=== PATIENT | female | born 1960 | race Caucasian/White ===

== ENCOUNTER 2021-01-21 22:43 | Inpatient (IN) | payer OTHER ==
[~2021-01-21] VITALS: Ht 162.6 cm; Wt 166.0 kg
[~2021-01-21 22:43] MED LIST: ACCUPRIL20 MG PO; ACTOS15 MG PO; ALBUTEROL2.5 MG/3 M INH; ASPIRIN 325MG325 MG PO; BASAGLAR K100 UNIT/1 SQ; DILTIAZEM 24HR240 MG PO; FLONASE ALLER15.8 ML; GLUCOPHAGE1000 MG PO; ISOSORBIDE MONO30 MG PO; K-DUR TAB 20 M20 MEQ PO; LASIX 40 MG TAB40 MG PO; METOPROLOL SUCC50 MG PO; NITROGLYCERIN6.5 M1 PO; PLAVIX75 MG PO; SINGULAIR10 MG PO; STOOL SOFTENER100 MG PO; VENTOLIN HFA 66.7 GM INH; ZANTAC300 MG PO; ZITHROMAX250 MG PO; ZOCOR20 MG PO
[2021-01-22 01:41] LABS: HEMOGLOBIN 10.4 gm/dl (12.3-15.3); RED BLOOD COUNT 4.14 M/UL (4.00-5.10)
[2021-01-22 02:03] LABS: BUN/CREATININE RATIO 13 (0-10)
[2021-01-22] MEDS ORDERED: DAILY VALUE1 EACH PO (11:43)
[2021-01-22] MEDS ORDERED: FLOVENT 220 MC7.9 GM INH (11:43)
[2021-01-22] MEDS ORDERED: JANUVIA100 MG PO (11:44)
[2021-01-22] MEDS ORDERED: PREDNISONE 10 M10 MG PO (11:44)
[2021-01-22] MEDS ORDERED: NITROGLYCERIN0.4 MG SL (11:45)
[2021-01-22] MEDS ORDERED: TRIAMCINOLONE A60 ML TOP (11:47)
[2021-01-22] MEDS ORDERED: AZITHROMYCIN250 MG PO (11:48)
[2021-01-23 06:24] LABS: HEMOGLOBIN 9.4 gm/dl (12.3-15.3); RED BLOOD COUNT 3.77 M/UL (4.00-5.10); WHITE BLOOD COUNT 13.4 K/UL (4.5-11.0)
[2021-01-24 06:34] LABS: HEMOGLOBIN 8.6 gm/dl (12.3-15.3); RED BLOOD COUNT 3.56 M/UL (4.00-5.10); WHITE BLOOD COUNT 13.6 K/UL (4.5-11.0)
[2021-01-25 05:34] LABS: HEMOGLOBIN 8.9 gm/dl (12.3-15.3); RED BLOOD COUNT 3.58 M/UL (4.00-5.10); WHITE BLOOD COUNT 10.9 K/UL (4.5-11.0)
[2021-01-26] MEDS ORDERED: FLAGYL500 MG PO (09:09)
[2021-01-26] MEDS ORDERED: LEVOFLOXACIN500 MG PO (09:09)
[2021-01-26] MEDS ORDERED: MEDROL4 MG PO (09:09)
== END 2021-01-26 11:08 | disposition home or self-care (01) | DRG 871 ==
LOC: ER1 22:43 → MED SURG 4 01-22 04:15 → CDU 01-22 04:15 → MED SURG 4 01-22 15:45
PROVIDERS: Internal Medicine; Physician Assistant; Physician Assistant Medical; ADMIT Internal Medicine
DX: A41.9 Sepsis, unspecified organism (principal); J18.9 Pneumonia, unspecified organism; J96.21 Acute and chronic respiratory failure with hypoxia; J96.22 Acute and chronic respiratory failure with hypercapnia; J44.1 Chronic obstructive pulmonary disease with (acute) exacerbation; J44.0 Chronic obstructive pulmonary disease with (acute) lower respiratory infection; Z68.44 Body mass index [BMI] 60.0-69.9, adult; K81.0 Acute cholecystitis; E66.2 Morbid (severe) obesity with alveolar hypoventilation; R65.20 Severe sepsis without septic shock; Z20.822 Contact with and (suspected) exposure to COVID-19; E78.5 Hyperlipidemia, unspecified; F17.210 Nicotine dependence, cigarettes, uncomplicated; I25.10 Atherosclerotic heart disease of native coronary artery without angina pectoris; E11.65 Type 2 diabetes mellitus with hyperglycemia; Z79.4 Long term (current) use of insulin; Z99.81 Dependence on supplemental oxygen; Z95.5 Presence of coronary angioplasty implant and graft; Z90.49 Acquired absence of other specified parts of digestive tract; Z88.5 Allergy status to narcotic agent; Z88.0 Allergy status to penicillin; Z88.2 Allergy status to sulfonamides; Z82.49 Family history of ischemic heart disease and other diseases of the circulatory system; Z71.6 Tobacco abuse counseling
CPT/HCPCS: 0240U; 36415; 36600; 71045; 76705; 80048; 80053; 81001; 82550; 82553; 82803; 82962; 83036; 83605; 83690; 83735; 83874; 84484; 85025; 85027; 87040; 93005; 94640; 94664; 94760; 96374; 97162; 99285; J0456; J0696; J1650; J2920; J2930; J7030; Q9967

== ENCOUNTER 2021-06-18 16:51 | Inpatient (IN) | payer OTHER ==
[~2021-06-18] VITALS: Ht 160 cm; Wt 172.4 kg
[~2021-06-18 16:51] MED LIST changes: +AZITHROMYCIN250 MG PO; +DAILY VALUE1 EACH PO; +FLAGYL500 MG PO; +FLOVENT 220 MC7.9 GM INH; +JANUVIA100 MG PO; +LEVOFLOXACIN500 MG PO; +MEDROL4 MG PO; +NITROGLYCERIN0.4 MG SL; +PREDNISONE 10 M10 MG PO; +TRIAMCINOLONE A60 ML TOP
[2021-06-18 17:34] LABS: HEMOGLOBIN 8.3 gm/dl (12.3-15.3); RED BLOOD COUNT 3.61 M/UL (4.00-5.10); WHITE BLOOD COUNT 13.6 K/UL (4.5-11.0)
[2021-06-18 18:06] LABS: BUN/CREATININE RATIO 25 (0-10)
[2021-06-18] MEDS ORDERED: LANTUS100 UNIT/1 SQ (20:44)
[2021-06-18] MEDS ORDERED: PROAIR HFA8.5 GM INH (20:45)
[2021-06-19 04:14] LABS: HEMOGLOBIN 7.6 gm/dl (12.3-15.3); RED BLOOD COUNT 3.36 M/UL (4.00-5.10); WHITE BLOOD COUNT 13.8 K/UL (4.5-11.0)
[2021-06-20 07:29] LABS: HEMOGLOBIN 8.2 gm/dl (12.3-15.3); RED BLOOD COUNT 3.61 M/UL (4.00-5.10); WHITE BLOOD COUNT 13.8 K/UL (4.5-11.0)
[2021-06-21 06:45] LABS: HEMOGLOBIN 8.2 gm/dl (12.3-15.3); RED BLOOD COUNT 3.57 M/UL (4.00-5.10); WHITE BLOOD COUNT 13.1 K/UL (4.5-11.0)
[2021-06-21] MEDS ORDERED: PROTONIX 40 MG40 M1 PO (16:35)
[2021-06-21] MEDS ORDERED: LEVOFLOXACIN750 MG PO (16:35)
[2021-06-21] MEDS ORDERED: MEDROL DOSEPAK 24 MG PO (16:35)
[2021-06-21] MEDS ORDERED: IPRAT-ALBUT 0.5-3 ML INH (16:35)
[2021-06-21] MEDS ORDERED: PULMICORT0.5 MG/2 M INH (16:47)
[2021-06-21] MEDS ORDERED: ASPIRIN EC81 MG PO (16:47)
[2021-06-21] MEDS ORDERED: FERROUS GLUCON324 M1 PO (16:47)
[2021-06-28] MEDS ORDERED: HYDROCODON-ACE1 EAC4 PO (09:08)
== END 2021-06-21 18:45 | disposition home or self-care (01) | DRG 871 ==
LOC: ER1 16:51 → CDU 21:07 → MED SURG 4 06-19 16:34
PROVIDERS: Internal Medicine; Physician Assistant; Surgery; ADMIT Internal Medicine
PROC: 3E0333Z Introduction of Anti-inflammatory into Peripheral Vein, Percutaneous Approach (ICD-10-PCS; principal; 2021-06-18)
PROC: 5A09357 Assistance with Respiratory Ventilation, Less than 24 Consecutive Hours, Continuous Positive Airway Pressure (ICD-10-PCS; 2021-06-18)
PROC: B24BZZ4 Ultrasonography of Heart with Aorta, Transesophageal (ICD-10-PCS; 2021-06-21)
DX: A41.9 Sepsis, unspecified organism (principal); J96.21 Acute and chronic respiratory failure with hypoxia; Z20.822 Contact with and (suspected) exposure to COVID-19; J96.22 Acute and chronic respiratory failure with hypercapnia; J44.1 Chronic obstructive pulmonary disease with (acute) exacerbation; J44.0 Chronic obstructive pulmonary disease with (acute) lower respiratory infection; E66.2 Morbid (severe) obesity with alveolar hypoventilation; Z68.44 Body mass index [BMI] 60.0-69.9, adult; R65.20 Severe sepsis without septic shock; E78.5 Hyperlipidemia, unspecified; D64.9 Anemia, unspecified; E11.65 Type 2 diabetes mellitus with hyperglycemia; G47.33 Obstructive sleep apnea (adult) (pediatric); I10 Essential (primary) hypertension; I25.10 Atherosclerotic heart disease of native coronary artery without angina pectoris; F17.210 Nicotine dependence, cigarettes, uncomplicated; E11.9 Type 2 diabetes mellitus without complications; Z79.4 Long term (current) use of insulin; Z95.5 Presence of coronary angioplasty implant and graft; Z90.49 Acquired absence of other specified parts of digestive tract; Z88.5 Allergy status to narcotic agent; Z88.0 Allergy status to penicillin; Z88.2 Allergy status to sulfonamides; Z82.49 Family history of ischemic heart disease and other diseases of the circulatory system; Z83.49 Family history of other endocrine, nutritional and metabolic diseases; Z79.2 Long term (current) use of antibiotics; Z79.01 Long term (current) use of anticoagulants; Z79.82 Long term (current) use of aspirin
CPT/HCPCS: ECHO; 36415; 36600; 71045; 71046; 76705; 80048; 80053; 82550; 82553; 82803; 82962; 83540; 83550; 83874; 83880; 84484; 85025; 85027; 90686; 93005; 93306; 94640; 94660; 94664; 94760; 96374; 96375; 96376; 99285; G0008; G0378; J0456; J1100; J1940; J1956; J2920; J2930; J7030; U0002

== ENCOUNTER 2021-06-27 15:17 | Emergency (ER) | payer OTHER ==
[~2021-06-27 15:17] MED LIST changes: +ASPIRIN EC81 MG PO; +FERROUS GLUCON324 M1 PO; +IPRAT-ALBUT 0.5-3 ML INH; +LANTUS100 UNIT/1 SQ; +LEVOFLOXACIN750 MG PO; +MEDROL DOSEPAK 24 MG PO; +PROAIR HFA8.5 GM INH; +PROTONIX 40 MG40 M1 PO; +PULMICORT0.5 MG/2 M INH
[2021-06-28] MEDS ORDERED: HYDROCODON-ACE1 EAC4 PO (09:08)
== END 2021-06-27 16:41 | disposition home or self-care (01) ==
LOC: ER1 15:17
DX: S82.831A Other fracture of upper and lower end of right fibula, initial encounter for closed fracture (principal); I25.10 Atherosclerotic heart disease of native coronary artery without angina pectoris; E11.9 Type 2 diabetes mellitus without complications; J44.9 Chronic obstructive pulmonary disease, unspecified; X50.1XXA Overexertion from prolonged static or awkward postures, initial encounter; F17.210 Nicotine dependence, cigarettes, uncomplicated
CPT/HCPCS: 73610; 99283

== ENCOUNTER 2021-10-24 11:03 | Inpatient (IN) | payer OTHER ==
[~2021-10-24] VITALS: Ht 162.6 cm; Wt 158.8 kg
[~2021-10-24 11:03] MED LIST changes: -ACTOS15 MG PO; -FLONASE ALLER15.8 ML; +HYDROCODON-ACE1 EAC4 PO; -JANUVIA100 MG PO; -LANTUS100 UNIT/1 SQ; -NITROGLYCERIN0.4 MG SL; -SINGULAIR10 MG PO; -STOOL SOFTENER100 MG PO; -ZOCOR20 MG PO
[2021-10-24 11:41] LABS: RED BLOOD COUNT 2.25 M/UL (4.00-5.10); WHITE BLOOD COUNT 17.2 K/UL (4.5-11.0)
[2021-10-24] MEDS ORDERED: JANUVIA100 MG PO (11:44)
[2021-10-24] MEDS ORDERED: NITROGLYCERIN0.4 MG SL (11:45)
[2021-10-24 12:11] LABS: BUN/CREATININE RATIO 26 (0-10)
[2021-10-24] MEDS ORDERED: ASPIRIN325 MG PO (14:44)
[2021-10-24] MEDS ORDERED: METOPROLOL SUCC50 MG PO (14:50)
[2021-10-24] MEDS ORDERED: CIPROFLOXACIN500 M1 PO (14:55)
[2021-10-24] MEDS ORDERED: PREDNISONE10 MG PO (14:55)
[2021-10-24] MEDS ORDERED: ALBUTEROL2.5 MG/3 M NEB (14:56)
--- NOTE | 2021-10-24 16:47 | NUR ---
THE SECOND UNIT OF BLOOD WAS STARTED ON PATIENT AT 1641
[2021-10-24] MEDS ORDERED: LANTUS100 UNIT/1 SQ (20:44)
[2021-10-24] MEDS ORDERED: ACTOS15 MG PO (22:07)
[2021-10-24] MEDS ORDERED: ZOCOR20 MG PO (22:09)
[2021-10-24] MEDS ORDERED: SINGULAIR10 MG PO (22:11)
[2021-10-24] MEDS ORDERED: STOOL SOFTENER100 MG PO (22:14)
[2021-10-24] MEDS ORDERED: FLONASE ALLER15.8 ML (22:18)
[2021-10-24 23:08] LABS: HEMOGLOBIN 6.4 gm/dl (12.3-15.3)
[2021-10-25 06:50] LABS: HEMOGLOBIN 7.1 gm/dl (12.3-15.3)
[2021-10-25 06:53] LABS: RED BLOOD COUNT 2.91 M/UL (4.00-5.10); WHITE BLOOD COUNT 11.6 K/UL (4.5-11.0)
[2021-10-25 14:27] LABS: HEMOGLOBIN 7.6 gm/dl (12.3-15.3)
[2021-10-26 03:00] LABS: HEMOGLOBIN 7.6 gm/dl (12.3-15.3); RED BLOOD COUNT 2.97 M/UL (4.00-5.10)
[2021-10-27 03:49] LABS: HEMOGLOBIN 7.2 gm/dl (12.3-15.3); RED BLOOD COUNT 2.82 M/UL (4.00-5.10)
[2021-10-28 03:35] LABS: RED BLOOD COUNT 2.82 M/UL (4.00-5.10); WHITE BLOOD COUNT 8.6 K/UL (4.5-11.0)
[2021-10-29 03:21] LABS: HEMOGLOBIN 7.7 gm/dl (12.3-15.3); RED BLOOD COUNT 3.05 M/UL (4.00-5.10); WHITE BLOOD COUNT 8.4 K/UL (4.5-11.0)
--- NOTE | 2021-10-30 17:38 | NUR ---
pt left via ems at this time noted
== END 2021-10-30 17:30 | disposition home or self-care (01) | DRG 193 ==
LOC: ER1 11:03 → PROG CARE 12:54 → CDU 12:54 → PROG CARE 14:26
PROVIDERS: Emergency Medicine; Physician Assistant Medical; ADMIT Internal Medicine
PROC: 30233N1 Transfusion of Nonautologous Red Blood Cells into Peripheral Vein, Percutaneous Approach (ICD-10-PCS; principal; 2021-10-24)
PROC: B24BZZ4 Ultrasonography of Heart with Aorta, Transesophageal (ICD-10-PCS; 2021-10-25)
PROC: 0DJ08ZZ Inspection of Upper Intestinal Tract, Via Natural or Artificial Opening Endoscopic (ICD-10-PCS; 2021-10-28)
PROC: 5A09457 Assistance with Respiratory Ventilation, 24-96 Consecutive Hours, Continuous Positive Airway Pressure (ICD-10-PCS; 2021-10-28)
PROC: 0DJD8ZZ Inspection of Lower Intestinal Tract, Via Natural or Artificial Opening Endoscopic (ICD-10-PCS; 2021-10-29)
DX: J18.9 Pneumonia, unspecified organism (principal); J96.21 Acute and chronic respiratory failure with hypoxia; J96.22 Acute and chronic respiratory failure with hypercapnia; I50.33 Acute on chronic diastolic (congestive) heart failure; G93.41 Metabolic encephalopathy; J44.0 Chronic obstructive pulmonary disease with (acute) lower respiratory infection; I13.0 Hypertensive heart and chronic kidney disease with heart failure and stage 1 through stage 4 chronic kidney disease, or unspecified chronic kidney disease; E66.2 Morbid (severe) obesity with alveolar hypoventilation; Z68.44 Body mass index [BMI] 60.0-69.9, adult; D62 Acute posthemorrhagic anemia; N95.0 Postmenopausal bleeding; N18.30 Chronic kidney disease, stage 3 unspecified; K21.9 Gastro-esophageal reflux disease without esophagitis; D63.1 Anemia in chronic kidney disease; I27.20 Pulmonary hypertension, unspecified; F41.9 Anxiety disorder, unspecified; K57.30 Diverticulosis of large intestine without perforation or abscess without bleeding; I08.1 Rheumatic disorders of both mitral and tricuspid valves; E11.22 Type 2 diabetes mellitus with diabetic chronic kidney disease; E78.5 Hyperlipidemia, unspecified; G89.29 Other chronic pain; I50.9 Heart failure, unspecified; I25.10 Atherosclerotic heart disease of native coronary artery without angina pectoris; Z90.49 Acquired absence of other specified parts of digestive tract; Z79.4 Long term (current) use of insulin; Z79.01 Long term (current) use of anticoagulants; Z79.82 Long term (current) use of aspirin; Z95.5 Presence of coronary angioplasty implant and graft; Z88.5 Allergy status to narcotic agent; Z88.0 Allergy status to penicillin; Z88.2 Allergy status to sulfonamides; Z88.8 Allergy status to other drugs, medicaments and biological substances; Z82.49 Family history of ischemic heart disease and other diseases of the circulatory system
CPT/HCPCS: ECHO; 0240U; 36415; 36600; 71045; 76856; 80048; 80053; 81001; 82272; 82550; 82553; 82607; 82728; 82746; 82803; 82962; 83036; 83540; 83550; 83605; 83735; 83874; 83880; 84484; 85014; 85018; 85025; 85027; 86850; 86900; 86901; 86920; 87040; 87086; 93005; 93306; 94660; 94760; 96374; 96375; 99285; C9113; J0456; J0696; J1940; J2001; J2250; J2704; J2920; J7030; J7040; P9016; Q9957; U0002

== ENCOUNTER 2021-12-04 10:42 | Inpatient (IN) | payer OTHER ==
[~2021-12-04] VITALS: Ht 162.6 cm; Wt 163.3 kg
[~2021-12-04 10:42] MED LIST changes: +ACTOS15 MG PO; +ALBUTEROL2.5 MG/3 M NEB; +ASPIRIN325 MG PO; +CIPROFLOXACIN500 M1 PO; +FLONASE ALLER15.8 ML; +JANUVIA100 MG PO; +LANTUS100 UNIT/1 SQ; +NITROGLYCERIN0.4 MG SL; +PREDNISONE10 MG PO; +SINGULAIR10 MG PO; +STOOL SOFTENER100 MG PO; +ZOCOR20 MG PO
[2021-12-04 11:47] LABS: RED BLOOD COUNT 2.8 M/UL (4.00-5.10)
[2021-12-04 11:56] LABS: HEMOGLOBIN 6.2 gm/dl (12.3-15.3)
[2021-12-04 12:12] LABS: BUN/CREATININE RATIO 24 (0-10)
[2021-12-04] MEDS ORDERED: MYCOSTATIN100000 UTS PO (17:07)
[2021-12-04 19:41] LABS: HEMOGLOBIN 6.7 gm/dl (12.3-15.3)
[2021-12-05 06:59] LABS: RED BLOOD COUNT 3.07 M/UL (4.00-5.10)
[2021-12-05 07:03] LABS: WHITE BLOOD COUNT 9.2 K/UL (4.5-11.0)
[2021-12-05 18:33] LABS: HEMOGLOBIN 8.2 gm/dl (12.3-15.3)
[2021-12-06 09:57] LABS: HEMOGLOBIN 8.1 gm/dl (12.3-15.3); RED BLOOD COUNT 3.36 M/UL (4.00-5.10)
[2021-12-06 09:58] LABS: WHITE BLOOD COUNT 11.7 K/UL (4.5-11.0)
== END 2021-12-06 19:55 | disposition home or self-care (01) | DRG 377 ==
LOC: ER1 10:42 → CDU 16:10 → M/S 16:10
PROVIDERS: Internal Medicine Gastroenterology; Nurse Practitioner; Physician Assistant Medical; ADMIT Internal Medicine
PROC: 30233N1 Transfusion of Nonautologous Red Blood Cells into Peripheral Vein, Percutaneous Approach (ICD-10-PCS; 2021-12-04)
PROC: 0DJ08ZZ Inspection of Upper Intestinal Tract, Via Natural or Artificial Opening Endoscopic (ICD-10-PCS; principal; 2021-12-06 07:30)
DX: K92.2 Gastrointestinal hemorrhage, unspecified (principal); K20.91 Esophagitis, unspecified with bleeding; J96.01 Acute respiratory failure with hypoxia; D62 Acute posthemorrhagic anemia; Z20.822 Contact with and (suspected) exposure to COVID-19; E87.3 Alkalosis; E66.2 Morbid (severe) obesity with alveolar hypoventilation; I50.32 Chronic diastolic (congestive) heart failure; N39.0 Urinary tract infection, site not specified; I13.0 Hypertensive heart and chronic kidney disease with heart failure and stage 1 through stage 4 chronic kidney disease, or unspecified chronic kidney disease; Z68.44 Body mass index [BMI] 60.0-69.9, adult; F41.9 Anxiety disorder, unspecified; K82.9 Disease of gallbladder, unspecified; I27.20 Pulmonary hypertension, unspecified; F17.210 Nicotine dependence, cigarettes, uncomplicated; E11.22 Type 2 diabetes mellitus with diabetic chronic kidney disease; J44.9 Chronic obstructive pulmonary disease, unspecified; G47.33 Obstructive sleep apnea (adult) (pediatric); N18.30 Chronic kidney disease, stage 3 unspecified; I25.10 Atherosclerotic heart disease of native coronary artery without angina pectoris; Z95.5 Presence of coronary angioplasty implant and graft; Z79.01 Long term (current) use of anticoagulants; Z79.82 Long term (current) use of aspirin; Z79.4 Long term (current) use of insulin; Z82.49 Family history of ischemic heart disease and other diseases of the circulatory system; Z88.5 Allergy status to narcotic agent; Z88.0 Allergy status to penicillin; Z88.2 Allergy status to sulfonamides
CPT/HCPCS: 0240U; 36415; 36430; 71045; 80048; 80053; 81001; 82272; 82550; 82553; 82962; 83735; 84484; 85014; 85018; 85025; 85027; 86850; 86900; 86901; 86920; 87086; 93005; 94760; 99285; C9113; J2704; P9016; Q9967

== ENCOUNTER 2022-01-26 22:48 | Emergency (ER) | payer OTHER ==
[~2022-01-26 22:48] MED LIST changes: +MYCOSTATIN100000 UTS PO
[2022-01-26 23:59] LABS: RED BLOOD COUNT 2.83 M/UL (4.00-5.10); WHITE BLOOD COUNT 13.2 K/UL (4.5-11.0)
[2022-01-27 00:01] LABS: HEMOGLOBIN 5.7 gm/dl (12.3-15.3)
[2022-01-27 12:20] LABS: HEMOGLOBIN 7.5 gm/dl (12.3-15.3)
== END 2022-01-27 12:43 | disposition home or self-care (01) ==
LOC: ER1 22:48
PROVIDERS: Family Medicine; Physician Assistant
DX: R10.84 Generalized abdominal pain (principal); D64.9 Anemia, unspecified; I11.9 Hypertensive heart disease without heart failure; E11.9 Type 2 diabetes mellitus without complications; E78.5 Hyperlipidemia, unspecified; J44.9 Chronic obstructive pulmonary disease, unspecified; Z88.5 Allergy status to narcotic agent
CPT/HCPCS: 36430; 80053; 81001; 83690; 85014; 85018; 85025; 86850; 86900; 86901; 86920; 96374; 96375; 99284; C9113; J2270; J2405; P9016; Q9967

== ENCOUNTER 2022-03-18 08:46 | Observation (INO) | payer OTHER ==
[~2022-03-18] VITALS: Ht 162.6 cm; Wt 159.5 kg
[~2022-03-18 08:46] MED LIST changes: +ECOTRIN81 MG PO; +FARXIGA5 MG PO; +METOPROLOL SUCC25 MG PO
[2022-03-18 09:48] LABS: HEMOGLOBIN 10.1 gm/dl (12.3-15.3); RED BLOOD COUNT 4.31 M/UL (4.00-5.10); WHITE BLOOD COUNT 13.4 K/UL (4.5-11.0)
[2022-03-18 10:28] LABS: BUN/CREATININE RATIO 23 (0-10)
[2022-03-18] MEDS ORDERED: DRISDOL1250 MCG PO (11:48)
[2022-03-18] MEDS ORDERED: JANUVIA100 MG PO (11:48)
[2022-03-18] MEDS ORDERED: HUMALOG100 UNIT/3 SQ (11:48)
[2022-03-18] MEDS ORDERED: PROAIR HFA8.5 GM INH (11:49)
[2022-03-18] MEDS ORDERED: PROTONIX 40 MG40 M1 PO (11:50)
[2022-03-18] MEDS ORDERED: ACTOS15 MG PO (11:51)
[2022-03-18] MEDS ORDERED: LANTUS SOL100 UNIT/1 SQ (11:51)
[2022-03-19 06:57] LABS: RED BLOOD COUNT 4.35 M/UL (4.00-5.10); WHITE BLOOD COUNT 10.3 K/UL (4.5-11.0)
== END 2022-03-19 13:58 | disposition home or self-care (01) ==
LOC: ER1 08:46 → CDU 11:09 → MED SURG 4 18:25
PROVIDERS: Emergency Medicine; ADMIT Internal Medicine
DX: J96.12 Chronic respiratory failure with hypercapnia (principal); J96.11 Chronic respiratory failure with hypoxia; J44.1 Chronic obstructive pulmonary disease with (acute) exacerbation; I13.0 Hypertensive heart and chronic kidney disease with heart failure and stage 1 through stage 4 chronic kidney disease, or unspecified chronic kidney disease; I50.22 Chronic systolic (congestive) heart failure; N18.30 Chronic kidney disease, stage 3 unspecified; E66.2 Morbid (severe) obesity with alveolar hypoventilation; I25.10 Atherosclerotic heart disease of native coronary artery without angina pectoris; E11.22 Type 2 diabetes mellitus with diabetic chronic kidney disease; F41.9 Anxiety disorder, unspecified; I27.20 Pulmonary hypertension, unspecified; Z68.41 Body mass index [BMI] 40.0-44.9, adult; Z79.4 Long term (current) use of insulin; Z79.82 Long term (current) use of aspirin; Z79.84 Long term (current) use of oral hypoglycemic drugs; Z79.899 Other long term (current) drug therapy; Z88.0 Allergy status to penicillin; Z88.2 Allergy status to sulfonamides; Z88.5 Allergy status to narcotic agent; Z88.8 Allergy status to other drugs, medicaments and biological substances; Z91.040 Latex allergy status
CPT/HCPCS: 36415; 36600; 70450; 71045; 80048; 80053; 81001; 82550; 82553; 82803; 82962; 83735; 83880; 84484; 85025; 87040; 94660; 94760; 96374; 96375; 96376; 99285; G0378; J0696; J2930